=== PATIENT | male | born 1990 | race Caucasian/White ===

== ENCOUNTER 2018-07-23 10:04 | Emergency (ER) | payer SELFPAY ==
[2018-07-23 10:06] VITALS: BP 167/95; PULSE 96; RESP 17; TEMP 36.8; O2SAT 95; BMI 40.7
--- NOTE | 2018-07-23 10:41 | ED.DCSUM_ITS ---
- ER Visit Summary Date of Service: 07/23/18 Chief Complaint: Pain and drainage from the gluteal crease and abscess right arm. History of Present Illness: The patient is a 27 M who has history of recurrent infected pilonidal cysts presents because of drainage and pain from the superior gluteal crease and he is noted at abscess right axilla. He denies fever, chills or night sweats. He denies history rheumatic fever, murmur, SBE, IV drug use or being immune suppressed. He denies any allergies to antibiotics. He denies allergy to soy products or egg products. He denies history of hypertension. Denies headache. Denies blurred vision, change in vision or double vision. Denies trouble with his speech or swallowing. He denies chest pain or back pain. He denies nausea or vomiting. He denies decreased urine output. He denies headache, anesthesia, paresthesia or motor weakness. He denies problems with balance. He is a smoker. Physical Examination: Vital signs are marked for an elevated blood pressure 167/95. When I entered the room he was standing up next to the bed. He states he has pain with sitting. HEENT exam is unremarkable. Insert cardiopulmonary exam abdomen is soft nontender. He is alert and oriented x3. Motor is 5/5. Sensations intact. Cranial 2 through 12 intact. Cerebellar testing is normal. Gait is normal. Test Results: None were obtained Emergency Department Course and Treatment: Patient was informed he has an infected pilonidal cyst which will require drainage and he has a small abscess in the right axilla which will require drainage. He was informed of risk benefits of procedure. He was hesitant to give consent. He requested time alone to think about it. I was informed by nursing staff at 1035 he will not allow drainage. He is requesting pain medicine. In my professional medical opinion patient has capacity to refuse treatment. We will optimize his care. He was referred to Dr. Shavon Ferreira for follow-up and removal of pilonidal sinus tract. He received a dose of antibiotics and 1 [place] tablet. In my professional opinion patient has the capacity to sign out AGAINST MEDICAL ADVICE. The patient is alert and oriented ?3 and has no impairment to make this decision. Patient has been told[] may not be able to perform one or more activities of daily living. This was stated in layman's terms, so the patient understood. He was informed that their condition may worsen resulting in physical, cognitive or emotional disability. And, not limitied to the following inability to use right upper extremity, loss of sensation, loss of motor strength, significant infection requiring life support and possible tracheostomy, surgical opening in his neck debride and feeding tube. Furthermore, this may result in a longer hospital stay or more aggressive measures. This may result in a seizure disorder. May result in a semi- vegetative to vegetative state requiring a feeding tube or tracheostomy (a surgical opening in your neck to breathe). Or, this may lead to . Treatment Plan: Antibiotic prescriptions referral to surgery Disposition: AMA Impression: 1. Infected pilonidal cyst 2. Small subcutaneous right axillary abscess 3. Hypertension in nonhypertensive patient, asymptomatic This note was generated with [employer] dictation software. It may contain incorrect words, spelling, and punctuation that were not noted in review of the chart prior to signing ED Disposition - Plan for ED Patient: Disposition: Against Medical Advice Chief Complaint: Abscess Instructions: ED Cyst Pilonidal Infec Abx Only, ED Skin Infec MRSA Suspect Conf Prescriptions: Cephalexin [Keflex] 500 mg PO Q6 #28 capsule Smz/Tmp Ds [Bactrim Ds] 1 tablet PO BID #14 tablet Referrals: Care Physician,No Primary [Primary Care Provider] - Shavon Ferreira MD [STAFF PHYSICIAN] - 2 Days for wound check Additional Instructions: Your prescriptions were electronically transmitted to preferred pharmacy. If you develop a fever, shaking chills, lightheadedness or have any concerns, please do not hesitate to return to the emergency department immediately
[2018-07-23] MEDS: Cephalexin 250 MG Capsule 500 MG PO (10:54)
[2018-07-23] MEDS: Smz/Tmp Ds Tablet 1 TABLET PO (10:54)
--- NOTE | 2018-07-23 11:24 | ED.RN ---
PT DECIDED TO TAKE PAIN MEDS. [address] EVANGELISTA
== END 2018-07-23 11:25 | disposition left against medical advice (07) ==
LOC: ED 10:58
PROVIDERS: Emergency Provider Emergency Medicine
DX: L05.91 Pilonidal cyst without abscess (principal); L02.411 Cutaneous abscess of right axilla; R03.0 Elevated blood-pressure reading, without diagnosis of hypertension; F17.200 Nicotine dependence, unspecified, uncomplicated
CPT/HCPCS: 99283